=== PATIENT | female | born 1990 | race Caucasian/White ===

== ENCOUNTER 2018-08-05 19:02 | Inpatient (IN) | payer MEDICAID ==
[2018-08-05] MEDS ORDERED: Sodium Chloride 0.9% 10 ML Syringe FLUSH PRN (20:05)
[2018-08-05] MEDS ORDERED: Nalbuphine 20 MG/ML 1 ML Syringe IVPUSH PRN (20:05)
[2018-08-05] MEDS ORDERED: Lactated Ringers 1,000 ML IV SCH (20:15)
[2018-08-05] MEDS ORDERED: Oxytocin/Lactated Ringers 10 UNIT/1,000 ML BAG IV SCH (20:15)
[2018-08-05] MEDS ORDERED: fentaNYL 100 MCG/2 ML SDV EPIDUR PRN (20:58)
[2018-08-05] MEDS ORDERED: ePHEDrine 50 MG/ML SDV IVPUSH PRN (20:58)
--- NOTE | 2018-08-05 21:00 | PCM.PREANE ---
Preanesthetic Assessment - Anesthesia/Transfusion/Family Hx Anesthesia History: Prior Anesthesia Without Reaction Family History of Anesthesia Reaction: No Transfusion History: No Prior Transfusion(s) Intubation History: Unknown - Review of Systems General: No Symptoms Pulmonary: No Symptoms Cardiovascular: No Symptoms Gastrointestinal: No Symptoms (GERD), Nausea Neurological: No Symptoms Other: Reports: None - Physical Assessment NPO Status Date: 08/05/18 NPO Status Time: 13:00 Pulse: 107 O2 Sat by Pulse Oximetry: 99 Respiratory Rate: 18 Blood Pressure: 145/92 Temperature: 37.3 C Height: 1.63 m Weight: 104.326 kg ASA Class: 2 Mental Status: Alert & Oriented x3 Airway Class: Mallampati = 2 Dentition: Reports: Normal Dentition, Caries Thyro-Mental Finger Breadths: 3 Mouth Opening Finger Breadths: 3 ROM/Head Extension: Full Lungs: Clear to Auscultation, Normal Respiratory Effort Cardiovascular: Regular Rate, Regular Rhythm, No Murmurs - Lab Values: Laboratory Last Values WBC 16.56 K/mm3 (3.98-10.04) H 08/05/18 20:35 RBC 3.98 M/mm3 (3.98-5.22) 08/05/18 20:35 Hgb 12.0 gm/L (11.2-15.7) 08/05/18 20:35 Hct 34.8 % (34.1-44.9) 08/05/18 20:35 MCV 87.4 fl (79.4-94.8) 08/05/18 20:35 MCH 30.2 pg (25.6-32.2) 08/05/18 20:35 MCHC 34.5 g/dl (32.2-35.5) 08/05/18 20:35 RDW Std Deviation 39.9 fL (36.4-46.3) 08/05/18 20:35 Plt Count 318 K/mm3 (182-369) 08/05/18 20:35 MPV 9.2 fl (9.4-12.3) L 08/05/18 20:35 Neut % (Auto) 71.6 % (34.0-71.1) H 08/05/18 20:35 Lymph % (Auto) 17.3 % (19.3-51.7) L 08/05/18 20:35 [place] % (Auto) 8.7 % (4.7-12.5) 08/05/18 20:35 Eos % (Auto) 1.9 (0.7-5.8) 08/05/18 20:35 Baso % (Auto) 0.1 % (0.1-1.2) 08/05/18 20:35 Neut # (Auto) 11.87 K/mm3 (1.56-6.13) H 08/05/18 20:35 Lymph # (Auto) 2.86 K/mm3 (1.18-3.74) 08/05/18 20:35 [place] # (Auto) 1.44 K/mm3 (0.24-0.36) H 08/05/18 20:35 Eos # (Auto) 0.31 K/mm3 (0.04-0.36) 08/05/18 20:35 Baso # (Auto) 0.02 K/mm3 (0.01-0.08) 08/05/18 20:35 Above labs reviewed and noted and within acceptable ranges to proceed with epidural. - Allergies Allergies/Adverse Reactions: Allergies Allergy/AdvReac Type Severity Reaction Status Date / Time cefaclor [From Ceclor] Allergy Anaphylactic Verified 07/25/18 21:51 Shock ciprofloxacin [From Cipro] Allergy Hives Verified 07/25/18 21:51 - Anesthesia Plan Pre-Op Medication Ordered: None - Acknowledgements Anesthesia Type Planned: Epidural Pt an Appropriate Candidate for the Planned Anesthesia: Yes Alternatives and Risks of Anesthesia Discussed w Pt/Guardian: Yes Pt/Guardian Understands and Agrees with Anesthesia Plan: Yes PreAnesthesia Questionnaire - CURRENT (IN HOUSE) MEDS Current Meds: Current Medications Lactated Ringer's (Ringers, Lactated) 1,000 mls @ 100 mls/hr IV ASDIRECTED ABHAY Last Admin: 08/05/18 20:30 Dose: 900 mls/hr Oxytocin/Lactated Ringer's (Pitocin In Lr 10 Units/1,000 Ml) 10 unit in 1,000 mls @ 500 mls/hr IV .CONTINUOUS ABHAY; Protocol Nalbuphine HCl (Nubain) 10 mg IVPUSH Q2H PRN PRN Reason: pain Sodium Chloride (Saline Flush) 10 ml FLUSH ASDIRECTED PRN PRN Reason: Keep Vein Open
[2018-08-05] MEDS ORDERED: fentaNYL/Bupivacaine-NS 2 MCG/ML-0.125%/PF 100 ML Bag EP SCH (21:15)
--- NOTE | 2018-08-05 21:45 | PCM.LDHP ---
L&D History of Present Illness - General Date of Service: 08/05/18 Admit Problem/Dx: Patient Status Order with Admit Dx/Problem 08/05/18 20:06 Patient Status [ADT] Routine 08/05/18 20:11 Patient Status [ADT] Routine Admission Diagnosis/Problem Admission Diagnosis/Problem Source of Information: Patient History Limitations: Reports: No Limitations - History of Present Illness Introduction:: Patient is a 28 y/o at 38 5/7 wks who presents in labor. Contractions started today. Was 5 cm on admission. Rapidly changed to complete with SROM. 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: Reports: : 6 Para: 5 LMP (Approximate): Social & Family History - Tobacco Use Smoking Status *Q: Former Smoker - Alcohol Use Alcohol Use History: No - Recreational Drug Use Recreational Drug Use: No H&P Review of Systems - Review of Systems: Review Of Systems: See Below General: Reports: No Symptoms Pulmonary: Reports: No Symptoms Cardiovascular: Reports: No Symptoms Gastrointestinal: Reports: No Symptoms Genitourinary: Reports: No Symptoms Musculoskeletal: Reports: No Symptoms Psychiatric: Reports: No Symptoms Neurological: Reports: No Symptoms L&D Exam - Exam Exam: See Below - Vital Signs Vital Signs: Last Vital Signs Temp 37.3 C 08/05/18 21:10 Pulse 107 H 08/05/18 21:10 Resp 18 08/05/18 21:10 BP 145/92 H 08/05/18 21:10 Pulse Ox 99 08/05/18 21:10 Weight: 104.326 kg - OB Specific Contraction Intensity: Moderate to Strong Movement: Active Heart Tones: Present Heart Tones per Min: 150 Heart Rate (FHR) Variability: Moderate (6-25 bmp) Presentation: Vertex - Gray Score Gray Score Cervix Position: Anterior Gray Score Consistency: Soft Gray Score Effacement: >80% Gray Score Dilation: > 5 cm Gray Score Infant's Station: -1 ,0 Gray Score Total: 12 - Exam General: Alert, Oriented, Cooperative Lungs: Clear to Auscultation, Normal Respiratory Effort Cardiovascular: Regular Rate, Regular Rhythm GI/Abdominal Exam: Soft, Non-Tender Genitourinary: Normal external exam Extremities: Normal Inspection Skin: Warm, Dry, Intact - Patient Data Lab Results Last 24 hrs: Laboratory Results - last 24 hr 08/05/18 Range/Units 20:35 WBC 16.56 H (3.98-10.04) K/mm3 RBC 3.98 (3.98-5.22) M/mm3 Hgb 12.0 (11.2-15.7) gm/L Hct 34.8 (34.1-44.9) % MCV 87.4 (79.4-94.8) fl MCH 30.2 (25.6-32.2) pg MCHC 34.5 (32.2-35.5) g/dl RDW Std Deviation 39.9 (36.4-46.3) fL Plt Count 318 (182-369) K/mm3 MPV 9.2 L (9.4-12.3) fl Neut % (Auto) 71.6 H (34.0-71.1) % Lymph % (Auto) 17.3 L (19.3-51.7) % [place] % (Auto) 8.7 (4.7-12.5) % Eos % (Auto) 1.9 (0.7-5.8) Baso % (Auto) 0.1 (0.1-1.2) % Neut # (Auto) 11.87 H (1.56-6.13) K/mm3 Lymph # (Auto) 2.86 (1.18-3.74) K/mm3 [place] # (Auto) 1.44 H (0.24-0.36) K/mm3 Eos # (Auto) 0.31 (0.04-0.36) K/mm3 Baso # (Auto) 0.02 (0.01-0.08) K/mm3 Result Diagrams: 08/05/18 20:35 - Problem List (1) 38 weeks gestation of SNOMED Code(s): 73731061 ICD Code: Z3A.38 - 38 WEEKS GESTATION OF Status: Acute Current Visit: Yes (2) Rh negative state in antepartum period SNOMED Code(s): 779661192 ICD Code: O26.899 - OTH RELATED CONDITIONS, UNSPECIFIED TRIMESTER; Z67.91 - UNSPECIFIED BLOOD TYPE, RH NEGATIVE Status: Acute Current Visit: Yes (3) Normal labor SNOMED Code(s): 43404904 ICD Code: O80 - ENCOUNTER FOR FULL-TERM UNCOMPLICATED DELIVERY; Z37.9 - OUTCOME OF DELIVERY, UNSPECIFIED Status: Acute Current Visit: Yes Problem List Initiated/Reviewed/Updated: Yes Orders Last 24hrs: Active Orders 24 hr Category Date Time Status Patient Status [ADT] Routine ADT 08/05/18 20:06 Active Patient Status [ADT] Routine ADT 08/05/18 20:11 Active Activity as Tolerated [RC] PFP Care 08/05/18 20:05 Active Communication Order [RC] ASDIRECTED Care 08/05/18 20:05 Active Heart Tones [RC] ASDIRECTED Care 08/05/18 20:07 Active Non Stress Test [RC] PER UNIT ROUTINE Care 08/05/18 20:05 Active Notify Provider [RC] ASDIRECTED Care 08/05/18 20:58 Active Notify Provider [RC] PFP Care 08/05/18 20:05 Active Notify Provider [RC] PRN Care 08/05/18 20:05 Active Oxygen Therapy [RC] ASDIRECTED Care 08/05/18 20:58 Active Peripheral IV Care [RC] . DIRECTED Care 08/05/18 20:07 Active Pulse Oximetry [RC] ASDIRECTED Care 08/05/18 20:58 Active Vital Signs [RC] PER UNIT ROUTINE Care 08/05/18 20:05 Active Vital Signs [RC] PER UNIT ROUTINE Care 08/05/18 20:11 Active RAPID PLASMA REAGIN,RPR [CHEM] Routine Lab 08/05/18 20:35 Received Lactated Ringers [Ringers, Lactated] 1,000 ml Med 08/05/18 20:15 Active IV ASDIRECTED Nalbuphine [Nubain] Med 08/05/18 20:05 Active 10 mg IVPUSH Q2H PRN Oxytocin/Lactated Ringers [Pitocin in LR 10 Units/1,000 Med 08/05/18 20:15 Active ML] 10 unit in 1,000 ml IV .CONTINUOUS Sodium Chloride 0.9% [Saline Flush] Med 08/05/18 20:05 Active 10 ml FLUSH ASDIRECTED PRN ePHEDrine [ePHEDrine sulfate] Med 08/05/18 20:58 Active 5 mg IVPUSH ASDIRECTED PRN fentaNYL [Sublimaze] Med 08/05/18 20:58 Active 100 mcg EPIDUR Q3H PRN fentaNYL/Bupivacaine/NS/PF [wsoziSJK-Xybyv-RY 2 MCG/ML- Med 08/05/18 21:15 Active 0.125%] 100 ml EP ASDIRECTED Electronic Heart Tones Ext w TOCO [WOMSER] Oth 08/05/18 20:05 Ordered Routine Electronic Heart Tones Internal [WOMSER] Per Unit Oth 08/05/18 20:05 Ordered Routine Peripheral IV Insertion Adult [OM.PC] Routine Oth 08/05/18 20:05 Ordered Resuscitation Status Routine Resus Stat 08/05/18 20:05 Ordered Medication Orders Ephedrine Sulfate (Ephedrine Sulfate) 5 mg IVPUSH ASDIRECTED PRN PRN Reason: Hypotension Fentanyl (Sublimaze) 100 mcg EPIDUR Q3H PRN PRN Reason: Pain Last Admin: 08/05/18 21:14 Dose: 100 mcg Fentanyl/Bupivacaine HCl (Jwylhgas-Dofds-Kp 2 Mcg/Ml-0.125%) 100 ml EP ASDIRECTED ABHAY Last Admin: 08/05/18 21:15 Dose: 100 ml Lactated Ringer's (Ringers, Lactated) 1,000 mls @ 100 mls/hr IV ASDIRECTED ABHAY Last Admin: 08/05/18 20:30 Dose: 900 mls/hr Oxytocin/Lactated Ringer's (Pitocin In Lr 10 Units/1,000 Ml) 10 unit in 1,000 mls @ 500 mls/hr IV .CONTINUOUS ABHAY; Protocol Nalbuphine HCl (Nubain) 10 mg IVPUSH Q2H PRN PRN Reason: pain Sodium Chloride (Saline Flush) 10 ml FLUSH ASDIRECTED PRN PRN Reason: Keep Vein Open Assessment/Plan Comment:: 28 y/o at 38 5/7 wks presented in labor with rapid change to complete dilation - delivery imminent. See delivery note
--- NOTE | 2018-08-05 21:48 | PCM.DEL ---
L & D Note - General Info Date of Service: 08/05/18 - Delivery Note Labor: Spontaneous Delivery Outcome: Livebirth Delivery Method: Spontaneous Vaginal Delivery-Single Delivery Mode: Spontaneous Presentation: Right Occiput Anterior (MANINDER) Nuchal Cord: Present (tight, not reduced) Anesthesia Type: None Amniotic Fluid Description: Clear Episiotomy Type: None Laceration: None Placenta: Intact, Spontaneous Cord: 3 Vessels Estimated Blood Loss: 200 Resuscitation Needed: Yes : Bulb Syringe, Stimulated, Warmed, [place] Used, Warmer Used Delivery Comments (Free Text/Narrative):: Patient found to be complete and began pushing. With maternal pushing effort head delivered from MANINDER presentation. body quickly delivered afterwards. Nuchal cord noted and reduced after delivery. then placed on maternal abdomen. Cord clamped and cut. Cord blood obtained. Placenta allowed time to separate and expelled intact. Inspection of the perineum showed no lacerations - General Info Date of Service: 08/05/18 - Patient Data Vitals - Most Recent: Last Vital Signs Temp 37.3 C 08/05/18 21:10 Pulse 107 H 08/05/18 21:10 Resp 18 08/05/18 21:10 BP 145/92 H 08/05/18 21:10 Pulse Ox 99 08/05/18 21:10 Weight - Most Recent: 104.326 kg Lab Results Last 24 Hours: Laboratory Results - last 24 hr 08/05/18 Range/Units 20:35 WBC 16.56 H (3.98-10.04) K/mm3 RBC 3.98 (3.98-5.22) M/mm3 Hgb 12.0 (11.2-15.7) gm/L Hct 34.8 (34.1-44.9) % MCV 87.4 (79.4-94.8) fl MCH 30.2 (25.6-32.2) pg MCHC 34.5 (32.2-35.5) g/dl RDW Std Deviation 39.9 (36.4-46.3) fL Plt Count 318 (182-369) K/mm3 MPV 9.2 L (9.4-12.3) fl Neut % (Auto) 71.6 H (34.0-71.1) % Lymph % (Auto) 17.3 L (19.3-51.7) % [place] % (Auto) 8.7 (4.7-12.5) % Eos % (Auto) 1.9 (0.7-5.8) Baso % (Auto) 0.1 (0.1-1.2) % Neut # (Auto) 11.87 H (1.56-6.13) K/mm3 Lymph # (Auto) 2.86 (1.18-3.74) K/mm3 [place] # (Auto) 1.44 H (0.24-0.36) K/mm3 Eos # (Auto) 0.31 (0.04-0.36) K/mm3 Baso # (Auto) 0.02 (0.01-0.08) K/mm3 Med Orders - Current: Current Medications Ephedrine Sulfate (Ephedrine Sulfate) 5 mg IVPUSH ASDIRECTED PRN PRN Reason: Hypotension Fentanyl (Sublimaze) 100 mcg EPIDUR Q3H PRN PRN Reason: Pain Last Admin: 08/05/18 21:14 Dose: 100 mcg Fentanyl/Bupivacaine HCl (Kdkzljms-Dcggf-Dt 2 Mcg/Ml-0.125%) 100 ml EP ASDIRECTED ABHAY Last Admin: 08/05/18 21:15 Dose: 100 ml Lactated Ringer's (Ringers, Lactated) 1,000 mls @ 100 mls/hr IV ASDIRECTED ABHAY Last Admin: 08/05/18 20:30 Dose: 900 mls/hr Oxytocin/Lactated Ringer's (Pitocin In Lr 10 Units/1,000 Ml) 10 unit in 1,000 mls @ 500 mls/hr IV .CONTINUOUS ABHAY; Protocol Nalbuphine HCl (Nubain) 10 mg IVPUSH Q2H PRN PRN Reason: pain Sodium Chloride (Saline Flush) 10 ml FLUSH ASDIRECTED PRN PRN Reason: Keep Vein Open - Problem List & Annotations (1) 38 weeks gestation of SNOMED Code(s): 57173912 Code(s): Z3A.38 - 38 WEEKS GESTATION OF Status: Acute Current Visit: Yes (2) Rh negative state in antepartum period SNOMED Code(s): 496468892 Code(s): O26.899 - OTH RELATED CONDITIONS, UNSPECIFIED TRIMESTER; Z67.91 - UNSPECIFIED BLOOD TYPE, RH NEGATIVE Status: Acute Current Visit: Yes (3) Normal labor SNOMED Code(s): 02731407 Code(s): O80 - ENCOUNTER FOR FULL-TERM UNCOMPLICATED DELIVERY; Z37.9 - OUTCOME OF DELIVERY, UNSPECIFIED Status: Acute Current Visit: Yes (4) Vaginal delivery SNOMED Code(s): 903279155 Code(s): O80 - ENCOUNTER FOR FULL-TERM UNCOMPLICATED DELIVERY Status: Acute Current Visit: Yes - Problem List Review Problem List Initiated/Reviewed/Updated: Yes - My Orders Last 24 Hours: My Active Orders 08/05/18 20:05 Activity as Tolerated [RC] PFP Communication Order [RC] ASDIRECTED Non Stress Test [RC] PER UNIT ROUTINE Notify Provider [RC] PFP Notify Provider [RC] PRN Vital Signs [RC] PER UNIT ROUTINE Nalbuphine [Nubain] 10 mg IVPUSH Q2H PRN Sodium Chloride 0.9% [Saline Flush] 10 ml FLUSH ASDIRECTED PRN Electronic Heart Tones Ext w TOCO [WOMSER] Routine Electronic Heart Tones Internal [WOMSER] Per Unit Routine Peripheral IV Insertion Adult [OM.PC] Routine Resuscitation Status Routine 08/05/18 20:06 Patient Status [ADT] Routine 08/05/18 20:07 Heart Tones [RC] ASDIRECTED Peripheral IV Care [RC] . DIRECTED 08/05/18 20:11 Patient Status [ADT] Routine Vital Signs [RC] PER UNIT ROUTINE 08/05/18 20:15 Lactated Ringers [Ringers, Lactated] 1,000 ml IV ASDIRECTED Oxytocin/Lactated Ringers [Pitocin in LR 10 Units/1,000 ML] 10 unit in 1,000 ml IV .CONTINUOUS 08/05/18 20:35 RAPID PLASMA REAGIN,RPR [CHEM] Routine - Assessment Assessment:: 28 y/o G6 now P6006 PPD#0 from at 38 5/7 wks - Plan Plan:: * Routine cares * Encourage breast feeding * Will assess baby blood type following delivery to see if Rhogam required * Discharge home in 1-2 days
[2018-08-05] MEDS ORDERED: Benzocaine/Menthol 20%-0.5% Spray 56 GM Canister TOP PRN (22:03)
[2018-08-05] MEDS ORDERED: Witch Hazel Medicated Pads 100/Jar TOP PRN (22:03)
[2018-08-05] MEDS ORDERED: Docusate Sodium 100 MG Cap PO PRN (22:03)
[2018-08-05] MEDS ORDERED: Lanolin 100% Cream 7 GM Tube TOP PRN (22:03)
[2018-08-05] MEDS: Ibuprofen 600 MG Tab PO PRN (22:15)
[2018-08-06] MEDS: Acetaminophen 325 MG Tab PO PRN ×3 (00:22→20:00)
[2018-08-06] MEDS ORDERED: HYDROmorphone 2 MG Tab PO ONE ×2 (02:30→13:53)
[2018-08-06] MEDS: Ibuprofen 600 MG Tab PO PRN ×3 (04:56→18:27)
--- NOTE | 2018-08-06 06:27 | PCM.PNPP ---
- General Info Date of Service: 08/06/18 Functional Status: Reports: Pain Controlled, Tolerating Diet, Ambulating, Urinating - Review of Systems General: Reports: No Symptoms Pulmonary: Reports: No Symptoms Cardiovascular: Reports: No Symptoms Gastrointestinal: Reports: No Symptoms Genitourinary: Reports: No Symptoms Musculoskeletal: Reports: No Symptoms Neurological: Reports: No Symptoms - Patient Data Vital Signs - Most Recent: Last Vital Signs Temp 36.6 C 08/06/18 04:54 Pulse 69 08/06/18 04:54 Resp 16 08/06/18 04:54 BP 137/91 H 08/06/18 04:54 Pulse Ox 99 08/06/18 04:54 Weight - Most Recent: 104.326 kg I&O - Last 24 Hours: Intake & Output 08/05/18 08/05/18 08/06/18 14:59 22:59 06:59 Intake Total 1000 1000 Balance 1000 1000 Lab Results - Last 24 Hours: Laboratory Results - last 24 hr 08/05/18 Range/Units 20:35 WBC 16.56 H (3.98-10.04) K/mm3 RBC 3.98 (3.98-5.22) M/mm3 Hgb 12.0 (11.2-15.7) gm/L Hct 34.8 (34.1-44.9) % MCV 87.4 (79.4-94.8) fl MCH 30.2 (25.6-32.2) pg MCHC 34.5 (32.2-35.5) g/dl RDW Std Deviation 39.9 (36.4-46.3) fL Plt Count 318 (182-369) K/mm3 MPV 9.2 L (9.4-12.3) fl Neut % (Auto) 71.6 H (34.0-71.1) % Lymph % (Auto) 17.3 L (19.3-51.7) % [place] % (Auto) 8.7 (4.7-12.5) % Eos % (Auto) 1.9 (0.7-5.8) Baso % (Auto) 0.1 (0.1-1.2) % Neut # (Auto) 11.87 H (1.56-6.13) K/mm3 Lymph # (Auto) 2.86 (1.18-3.74) K/mm3 [place] # (Auto) 1.44 H (0.24-0.36) K/mm3 Eos # (Auto) 0.31 (0.04-0.36) K/mm3 Baso # (Auto) 0.02 (0.01-0.08) K/mm3 Med Orders - Current: Current Medications Acetaminophen (Tylenol) 650 mg PO Q4H PRN PRN Reason: mild pain or fever Last Admin: 08/06/18 00:22 Dose: 650 mg Benzocaine/Menthol (Dermoplast Pain Relief [place]) 0 gm TOP ASDIRECTED PRN PRN Reason: Perineal Comfort Measure Docusate Sodium (Colace) 100 mg PO BID PRN PRN Reason: Constipation Emollient Ointment (Lansinoh Hpa) 0 gm TOP ASDIRECTED PRN PRN Reason: Sore Nipples Ibuprofen (Motrin) 600 mg PO Q6H PRN PRN Reason: Mild pain or fever Last Admin: 08/06/18 04:56 Dose: 600 mg Witch Loraine (Tucks) 1 pad TOP ASDIRECTED PRN PRN Reason: Hemorrhoid pain Discontinued Medications Ephedrine Sulfate (Ephedrine Sulfate) 5 mg IVPUSH ASDIRECTED PRN PRN Reason: Hypotension Fentanyl (Sublimaze) 100 mcg EPIDUR Q3H PRN PRN Reason: Pain Last Admin: 08/05/18 21:14 Dose: 100 mcg Fentanyl/Bupivacaine HCl ([place]-Mpfsu-Fn 2 Mcg/Ml-0.125%) 100 ml EP ASDIRECTED ABHAY Last Admin: 08/05/18 21:15 Dose: 100 ml Hydromorphone HCl (Dilaudid) 2 mg PO ONETIME ONE Stop: 08/06/18 02:31 Last Admin: 08/06/18 03:11 Dose: 2 mg Lactated Ringer's (Ringers, Lactated) 1,000 mls @ 100 mls/hr IV ASDIRECTED ABHAY Last Admin: 08/05/18 20:30 Dose: 900 mls/hr Oxytocin/Lactated Ringer's (Pitocin In Lr 10 Units/1,000 Ml) 10 unit in 1,000 mls @ 500 mls/hr IV .CONTINUOUS ABHAY; Protocol Last Titration: 08/05/18 22:30 Dose: 250 mls/hr Nalbuphine HCl (Nubain) 10 mg IVPUSH Q2H PRN PRN Reason: pain Sodium Chloride (Saline Flush) 10 ml FLUSH ASDIRECTED PRN PRN Reason: Keep Vein Open - Interaction Infant Disposition, : [place] to Nursery Infant Feeding: Breastfed Infant; Nursed Well Support Person: - Recovery Exam Fundal Tone: Firm Fundal Level: 2 Fingerbreadths Below Umbilicus Fundal Placement: Midline Lochia Amount: Small Lochia Color: Rubra/Red Perineum Description: Intact, Minimal Bruising/Swelling Bladder Status: Voiding - Exam General: Alert, Oriented, Cooperative GI/Abdominal Exam: Soft, Non-Tender Extremities: Normal Inspection Skin: Warm, Dry, Intact - Problem List & Annotations (1) 38 weeks gestation of SNOMED Code(s): 51914923 Code(s): Z3A.38 - 38 WEEKS GESTATION OF Status: Acute Current Visit: Yes (2) Rh negative state in antepartum period SNOMED Code(s): 521532809 Code(s): O26.899 - OTH RELATED CONDITIONS, UNSPECIFIED TRIMESTER; Z67.91 - UNSPECIFIED BLOOD TYPE, RH NEGATIVE Status: Acute Current Visit: Yes (3) Normal labor SNOMED Code(s): 66545303 Code(s): O80 - ENCOUNTER FOR FULL-TERM UNCOMPLICATED DELIVERY; Z37.9 - OUTCOME OF DELIVERY, UNSPECIFIED Status: Acute Current Visit: Yes (4) Vaginal delivery SNOMED Code(s): 464371484 Code(s): O80 - ENCOUNTER FOR FULL-TERM UNCOMPLICATED DELIVERY Status: Acute Current Visit: Yes - Problem List Review Problem List Initiated/Reviewed/Updated: Yes - My Orders Last 24 Hours: My Active Orders 08/05/18 20:05 Activity as Tolerated [RC] PFP Communication Order [RC] ASDIRECTED Notify Provider [RC] PFP Notify Provider [RC] PRN Vital Signs [RC] PER UNIT ROUTINE Resuscitation Status Routine 08/05/18 20:07 Heart Tones [RC] ASDIRECTED 08/05/18 20:11 Vital Signs [RC] PER UNIT ROUTINE 08/05/18 20:35 RAPID PLASMA REAGIN,RPR [CHEM] Routine 08/05/18 22:03 Activity as Tolerated [RC] PER UNIT ROUTINE Vital Signs [RC] 03,09,15,21 Acetaminophen [Tylenol] 650 mg PO Q4H PRN Benzocaine/Menthol [Dermoplast Pain Relief [place]] See Dose Instructions TOP ASDIRECTED PRN Docusate Sodium [Colace] 100 mg PO BID PRN Ibuprofen [Motrin] 600 mg PO Q6H PRN Lanolin [Lansinoh HPA] See Dose Instructions TOP ASDIRECTED PRN Witch Loraine [Tucks] 1 pad TOP ASDIRECTED PRN Assess Lochia [WOMSER] Per Unit Routine Assess Uterine Involution [WOMSER] Per Unit Routine Breast Pump [WOMSER] Per Unit Routine Heat Therapy [OM.PC] PRN Ice Therapy [OM.PC] Per Unit Routine Perineal Care [OM.PC] Per Unit Routine Sitz Bath [OM.PC] Per Unit Routine 08/05/18 Dinner Regular Diet [DIET] 08/06/18 06:14 RHOGAM, [RHIG WORKUP, ] [BBK] Routine 08/06/18 22:03 Heat Therapy [OM.PC] PRN - Assessment Assessment:: 28 y/o G6 now P6006 PPD#1 from at 38 5/7 wks - Plan Plan:: * Routine cares * Encourage breast feeding * Rhogam to be given today * Discharge home today vs tomorrow
[2018-08-07] MEDS: Ibuprofen 600 MG Tab PO PRN (00:13)
[2018-08-07] MEDS: Acetaminophen 325 MG Tab PO PRN ×2 (00:13→04:11)
--- NOTE | 2018-08-07 06:47 | PCM.PNPP ---
- General Info Date of Service: 08/07/18 Functional Status: Reports: Pain Controlled, Tolerating Diet, Ambulating, Urinating - Review of Systems General: Reports: No Symptoms Pulmonary: Reports: No Symptoms Cardiovascular: Reports: No Symptoms Gastrointestinal: Reports: No Symptoms Genitourinary: Reports: No Symptoms Musculoskeletal: Reports: No Symptoms Neurological: Reports: No Symptoms - Patient Data Vital Signs - Most Recent: Last Vital Signs Temp 36.7 C 08/07/18 04:08 Pulse 78 08/07/18 04:08 Resp 16 08/07/18 04:08 BP 126/71 08/07/18 04:08 Pulse Ox 97 08/07/18 04:08 Weight - Most Recent: 104.326 kg I&O - Last 24 Hours: Intake & Output 08/06/18 08/06/18 08/07/18 14:59 22:59 06:59 Intake Total 121 240 Balance 121 240 Lab Results - Last 24 Hours: Laboratory Results - last 24 hr 08/06/18 Range/Units 06:30 Blood Type O NEGATIVE Gel Antibody Screen Negative Screen 0 ros/5 flds - neg RhIG Candidate? Yes Rhogam Indicated Yes, baby rh pos H Med Orders - Current: Current Medications Acetaminophen (Tylenol) 650 mg PO Q4H PRN PRN Reason: mild pain or fever Last Admin: 08/07/18 04:11 Dose: 650 mg Benzocaine/Menthol (Dermoplast Pain Relief [place]) 0 gm TOP ASDIRECTED PRN PRN Reason: Perineal Comfort Measure Docusate Sodium (Colace) 100 mg PO BID PRN PRN Reason: Constipation Emollient Ointment (Lansinoh Hpa) 0 gm TOP ASDIRECTED PRN PRN Reason: Sore Nipples Ibuprofen (Motrin) 600 mg PO Q6H PRN PRN Reason: Mild pain or fever Last Admin: 08/07/18 00:13 Dose: 600 mg Witch Loraine (Tucks) 1 pad TOP ASDIRECTED PRN PRN Reason: Hemorrhoid pain Discontinued Medications Ephedrine Sulfate (Ephedrine Sulfate) 5 mg IVPUSH ASDIRECTED PRN PRN Reason: Hypotension Fentanyl (Sublimaze) 100 mcg EPIDUR Q3H PRN PRN Reason: Pain Last Admin: 08/05/18 21:14 Dose: 100 mcg Fentanyl/Bupivacaine HCl (Duqgmtyi-Rascu-Eu 2 Mcg/Ml-0.125%) 100 ml EP ASDIRECTED ABHAY Last Admin: 08/05/18 21:15 Dose: 100 ml Hydromorphone HCl (Dilaudid) 2 mg PO ONETIME ONE Stop: 08/06/18 02:31 Last Admin: 08/06/18 03:11 Dose: 2 mg Hydromorphone HCl (Dilaudid) 2 mg PO NOW ONE Stop: 08/06/18 13:54 Last Admin: 08/06/18 14:01 Dose: 2 mg Lactated Ringer's (Ringers, Lactated) 1,000 mls @ 100 mls/hr IV ASDIRECTED ABHAY Last Admin: 08/05/18 20:30 Dose: 900 mls/hr Oxytocin/Lactated Ringer's (Pitocin In Lr 10 Units/1,000 Ml) 10 unit in 1,000 mls @ 500 mls/hr IV .CONTINUOUS ABHAY; Protocol Last Titration: 08/05/18 22:30 Dose: 250 mls/hr Nalbuphine HCl (Nubain) 10 mg IVPUSH Q2H PRN PRN Reason: pain Sodium Chloride (Saline Flush) 10 ml FLUSH ASDIRECTED PRN PRN Reason: Keep Vein Open - Interaction Disposition, : at Bedside Interaction: Holding Feeding: Breastfed Infant; Nursed Well Support Person: - Recovery Exam Fundal Tone: Firm Fundal Level: 2 Fingerbreadths Below Umbilicus Fundal Placement: Midline Lochia Amount: Scant, Small Lochia Color: Rubra/Red Perineum Description: Intact, Minimal Bruising/Swelling Bladder Status: Voiding - Exam General: Alert, Oriented, Cooperative GI/Abdominal Exam: Soft, Non-Tender Extremities: Normal Inspection Skin: Warm, Dry, Intact - Problem List & Annotations (1) 38 weeks gestation of SNOMED Code(s): 44489384 Code(s): Z3A.38 - 38 WEEKS GESTATION OF Status: Acute Current Visit: Yes (2) Rh negative state in antepartum period SNOMED Code(s): 579275594 Code(s): O26.899 - OTH RELATED CONDITIONS, UNSPECIFIED TRIMESTER; Z67.91 - UNSPECIFIED BLOOD TYPE, RH NEGATIVE Status: Acute Current Visit: Yes (3) Normal labor SNOMED Code(s): 56556148 Code(s): O80 - ENCOUNTER FOR FULL-TERM UNCOMPLICATED DELIVERY; Z37.9 - OUTCOME OF DELIVERY, UNSPECIFIED Status: Acute Current Visit: Yes (4) Vaginal delivery SNOMED Code(s): 521882425 Code(s): O80 - ENCOUNTER FOR FULL-TERM UNCOMPLICATED DELIVERY Status: Acute Current Visit: Yes - Problem List Review Problem List Initiated/Reviewed/Updated: Yes - My Orders Last 24 Hours: My Active Orders 08/06/18 22:03 Heat Therapy [OM.PC] PRN 08/07/18 06:46 Ready for Discharge [RC] PER UNIT ROUTINE - Assessment Assessment:: 28 y/o G6 now P6006 PPD#2 from at 38 5/7 wks - Plan Plan:: * Routine cares * Encourage breast feeding * Rhogam given * Discharge home today
--- NOTE | 2018-08-07 06:47 | PCM.DCSUM1 ---
Discharge Summary - Discharge Data Discharge Date: 08/07/18 Discharge Disposition: Home, Self-Care 01 Condition: Good - Discharge Diagnosis/Problem(s) (1) 38 weeks gestation of SNOMED Code(s): 36145641 ICD Code: Z3A.38 - 38 WEEKS GESTATION OF Status: Acute Current Visit: Yes (2) Rh negative state in antepartum period SNOMED Code(s): 763491732 ICD Code: O26.899 - OTH RELATED CONDITIONS, UNSPECIFIED TRIMESTER; Z67.91 - UNSPECIFIED BLOOD TYPE, RH NEGATIVE Status: Acute Current Visit: Yes (3) Normal labor SNOMED Code(s): 64867649 ICD Code: O80 - ENCOUNTER FOR FULL-TERM UNCOMPLICATED DELIVERY; Z37.9 - OUTCOME OF DELIVERY, UNSPECIFIED Status: Acute Current Visit: Yes (4) Vaginal delivery SNOMED Code(s): 300137007 ICD Code: O80 - ENCOUNTER FOR FULL-TERM UNCOMPLICATED DELIVERY Status: Acute Current Visit: Yes - Patient Summary/Data Complications: None Consults: None Recommended Follow-up Testing/Procedures: Follow up in 3-5 weeks for check Hospital Course: 28 y/o presented at 38 5/7 wks in labor. She progressed well and underwent a rapid . See delivery note. she did well and was discharged home on PPD#2 - Patient Instructions Diet: Regular Diet as Tolerated Activity: As Tolerated Activity, Other: Pelvic Rest for 6 weeks Driving: May Drive Today Showering/Bathing: May Shower Showering/Bathing, Other: May Bathe Notify Provider of: Fever, Increased Pain, Swelling and Redness, Drainage, Nausea and/or Vomiting - Discharge Plan *PRESCRIPTION DRUG MONITORING PROGRAM REVIEWED*: Not Applicable *COPY OF PRESCRIPTION DRUG MONITORING REPORT IN PATIENT CARLA: Not Applicable Home Medications: Home Meds Docusate Sodium [Colace] 100 mg PO BID PRN cap 08/06/18 [Rx] Ibuprofen [Motrin] 600 mg PO Q6H PRN tablet 08/06/18 [Rx] Referrals: Kayla aDrby MD [Physician] - (4-6 weeks for check ) - Discharge Summary/Plan Comment DC Time >30 min.: No - Patient Data Vitals - Most Recent: Last Vital Signs Temp 36.7 C 08/07/18 04:08 Pulse 78 08/07/18 04:08 Resp 16 08/07/18 04:08 BP 126/71 08/07/18 04:08 Pulse Ox 97 08/07/18 04:08 Weight - Most Recent: 104.326 kg I&O - Last 24 hours: Intake & Output 08/06/18 08/06/18 08/07/18 14:59 22:59 06:59 Intake Total 121 240 Balance 121 240 Lab Results - Last 24 hrs: Laboratory Results - last 24 hr 08/06/18 Range/Units 06:30 Blood Type O NEGATIVE Gel Antibody Screen Negative Screen 0 ros/5 flds - neg RhIG Candidate? Yes Rhogam Indicated Yes, baby rh pos H Med Orders - Current: Current Medications Acetaminophen (Tylenol) 650 mg PO Q4H PRN PRN Reason: mild pain or fever Last Admin: 08/07/18 04:11 Dose: 650 mg Benzocaine/Menthol (Dermoplast Pain Relief [place]) 0 gm TOP ASDIRECTED PRN PRN Reason: Perineal Comfort Measure Docusate Sodium (Colace) 100 mg PO BID PRN PRN Reason: Constipation Emollient Ointment (Lansinoh Hpa) 0 gm TOP ASDIRECTED PRN PRN Reason: Sore Nipples Ibuprofen (Motrin) 600 mg PO Q6H PRN PRN Reason: Mild pain or fever Last Admin: 08/07/18 00:13 Dose: 600 mg Witch Loraine (Tucks) 1 pad TOP ASDIRECTED PRN PRN Reason: Hemorrhoid pain Discontinued Medications Ephedrine Sulfate (Ephedrine Sulfate) 5 mg IVPUSH ASDIRECTED PRN PRN Reason: Hypotension Fentanyl (Sublimaze) 100 mcg EPIDUR Q3H PRN PRN Reason: Pain Last Admin: 08/05/18 21:14 Dose: 100 mcg Fentanyl/Bupivacaine HCl (Lkgyhjjx-Zxxof-Eb 2 Mcg/Ml-0.125%) 100 ml EP ASDIRECTED ABHAY Last Admin: 08/05/18 21:15 Dose: 100 ml Hydromorphone HCl (Dilaudid) 2 mg PO ONETIME ONE Stop: 08/06/18 02:31 Last Admin: 08/06/18 03:11 Dose: 2 mg Hydromorphone HCl (Dilaudid) 2 mg PO NOW ONE Stop: 08/06/18 13:54 Last Admin: 08/06/18 14:01 Dose: 2 mg Lactated Ringer's (Ringers, Lactated) 1,000 mls @ 100 mls/hr IV ASDIRECTED ABHAY Last Admin: 08/05/18 20:30 Dose: 900 mls/hr Oxytocin/Lactated Ringer's (Pitocin In Lr 10 Units/1,000 Ml) 10 unit in 1,000 mls @ 500 mls/hr IV .CONTINUOUS ABHAY; Protocol Last Titration: 08/05/18 22:30 Dose: 250 mls/hr Nalbuphine HCl (Nubain) 10 mg IVPUSH Q2H PRN PRN Reason: pain Sodium Chloride (Saline Flush) 10 ml FLUSH ASDIRECTED PRN PRN Reason: Keep Vein Open
== END 2018-08-07 11:40 | disposition home or self-care (01) | DRG 807 ==
LOC: JD.OBCHECK 19:02 → JD.OB 19:07 → JD.OBCHECK 20:06 → JD.OB 20:06 → OBSVTOIN 21:25 → JD.OB 21:26
PROVIDERS: ADMIT Obstetrics & Gynecology; ATTEND Obstetrics & Gynecology
PROC: 6A550ZT Pheresis of Cord Blood Stem Cells, Single (ICD-10-PCS; principal; 2018-08-05)
PROC: 10E0XZZ Delivery of Products of Conception, External Approach (ICD-10-PCS; principal; 2018-08-05)
PROC: 3E0234Z Introduction of Serum, Toxoid and Vaccine into Muscle, Percutaneous Approach (ICD-10-PCS; 2018-08-06)
DX: O98.32 Other infections with a predominantly sexual mode of transmission complicating childbirth (principal); Z37.0 Single live birth; A63.0 Anogenital (venereal) warts; Z3A.38 38 weeks gestation of pregnancy; Z88.1 Allergy status to other antibiotic agents; Z87.891 Personal history of nicotine dependence; O69.1XX0 Labor and delivery complicated by cord around neck, with compression, not applicable or unspecified; O26.893 Other specified pregnancy related conditions, third trimester; Z67.41 Type O blood, Rh negative; O99.62 Diseases of the digestive system complicating childbirth; K21.9 Gastro-esophageal reflux disease without esophagitis
CPT/HCPCS: 36415; 59025; 59409; 85025; 85461; 86592; 86850; 86900; 86901; A9270-GY; J2590; J2790; J3010; J7120